=== PATIENT | female | born 1975 | race Caucasian/White ===

== ENCOUNTER 2018-10-23 02:30 | Emergency (ER) | payer MEDICARE ==
[~2018-10-23] VITALS: Ht 167.6 cm; Wt 93.2 kg
[2018-10-23 02:37] VITALS: Ht 167.6 cm; Wt 93.2 kg
[2018-10-23] MEDS ORDERED: GLUCOPHAGE500 MG PO (02:49)
[2018-10-23] MEDS ORDERED: GLIMEPIRIDE2 MG PO (02:50)
[2018-10-23] MEDS ORDERED: BENADRYL50 MG PO (04:03)
[2018-10-23] MEDS ORDERED: MEDROL DOSE PACK4 MG PO (04:03)
[2018-10-23 04:13] VITALS: BP 114/75
== END 2018-10-23 04:13 | disposition home or self-care (01) ==
LOC: D.ER 02:30
DX: T78.3XXA Angioneurotic edema, initial encounter (principal); J30.81 Allergic rhinitis due to animal (cat) (dog) hair and dander